=== PATIENT | male | born 1975 | race Caucasian/White ===

== ENCOUNTER 2018-01-07 08:54 | Emergency (ER) ==
[2018-01-07 09:00] VITALS: BP 128/82; TEMP 97.1; BMI 24.0
[2018-01-07] MEDS ORDERED: LIDOCAINE HCL 1% SDV SUBCUT STA (10:39)
[2018-01-07] MEDS ORDERED: BOOSTRIX IM ONE (11:07)
--- NOTE | 2018-01-07 11:08 | ED.PDOC ---
General ED Provider: Dr. FLORY SCOTT Chief Complaint: Finger Laceration Stated Complaint: Thumb laceration. Occurred this morning when slicing tile Time Seen by Physician: 09:40 Mode of Arrival: Walk-In Information Source: Patient Primary Care Provider: FLORY SAEZ Nursing and Triage Documentation Reviewed and Agree: Yes Reviewed sepsis parameters & appropriate labs ordered?: Yes System Inflammatory Response Syndrome: Not Applicable Sepsis Protocol: For patient's 13 years and over: Temp is 96.8 and below OR 101 and greater Pulse >90 BPM Resp >20/minute Acutely Altered Mental Status Are patient's symptoms suggestive of a new infection, such as: -Pneumonia -Skin, Soft Tissue -Endocarditis -UTI -Bone, Joint Infection -Implantable Device -Acute Abdominal Infection -Wound Infection -Meningitis -Blood Stream Catheter Infection -Unknown System Inflammatory Response Syndrome: Not Applicable Trauma/Injury Complaint Exam - Trauma Complaint/Exam Location of Pain or Injury: Reports: LUE (Lt Thumb) Mechanism of Injury: Reports: Incised Onset/Duration: This AM Symptoms Are: Still present Timing of Treatment: Immediate Initial Severity: Severe Current Severity: Moderate Character: Reports: Burning, Sharp Aggravating: Reports: Movement Alleviating: Reports: Elevation Associated Signs and Symptoms: Denies: LOC, Confusion, Memory loss, Lethargy, Vomiting, Bruising, Swelling, Extremity disuse, Painful respiration, Hoarseness , Dysphagia, Hemoptysis, Significant blood loss Related History: Denies: Similar episode Penetrating Injury Risk Factors: Reports: None Related Surgical History: Reports: None Immobilization Removed Post Exam: No Skin Findings: Present: Tenderness (Lt Thumb) Review of Systems - Review Of Systems Constitutional: Reports: No symptoms Eyes: Reports: No symptoms Ears, Nose, Mouth, Throat: Reports: No symptoms Respiratory: Reports: No symptoms Cardiac: Reports: No symptoms GI: Reports: No symptoms : Reports: No symptoms Musculoskeletal: Reports: No symptoms, Other (lt thumb laceration ) Skin: Reports: No symptoms Neurological: Reports: No symptoms Endocrine: Reports: No symptoms Hematologic/Lymphatic: Reports: No symptoms All Other Systems: Reviewed and Negative Past Medical History - Past Medical History Previously Healthy: Yes Endocrine: Reports: None Cardiovascular: Reports: None Respiratory: Reports: None Hematological: Reports: None Gastrointestinal: Reports: None Genitourinary: Reports: None Neuro/Psych: Reports: None Musculoskeletal: Reports: None Cancer: Reports: None - Surgical History General Surgical History: Reports: None - Family History Family History: Reports: None - Social History Smoking Status: Never smoker Hx Substance Use: No Alcohol Screening: None - Immunizations Tetanus Shot up to Date: No Physical Exam - Physical Exam Appearance: Well-appearing, No pain distress, Well-nourished Eyes: AGUILA, EOMI, Conjunctiva clear ENT: Ears normal, Nose normal, Oropharynx normal Respiratory: Airway patent, Breath sounds clear, Breath sounds equal, Respirations nonlabored Cardiovascular: RRR, Pulses normal, No rub, No murmur GI/: Soft, Nontender, No masses, Bowel sounds normal, No Organomegaly Musculoskeletal: Normal strength, ROM intact, No edema, No calf tenderness Skin: Warm (horizonal lacertation lt 1st phalynx - mid aspect extending from med -lateral up to proxm nailbed ), Dry, Normal color Neurological: Sensation intact, Motor intact, Reflexes intact, Cranial nerves intact, Alert, Oriented Psychiatric: Affect appropriate, Mood appropriate Procedures - Laceration/Wound Repair Lt Thumb Wound Description: Other (horizonal) Wound Length (cm): 2.0 cm Wound Width: 2 mm Wound Depth: 2 mm Wound Explored: Clean Wound Irrigated: Yes Wound Prep: Hibiclens, Betadine Anesthesia: Lidocaine (3cc digital block) Wound Debrided: Minimal Wound Margins: Other (approximated) Wound Repaired With: Sutures Suture Size and Type: Nylon, 4-0 Number of Sutures: 4 Layer Closure?: No Sterile Dressing Applied?: Yes Splint Applied?: Yes Type of Splint Applied: digital stabilizer Sling Applied?: No Progress: Good Critical Care Note - Critical Care Note Total Time (mins): 0 Course - Course Vital Signs: Temp Pulse Resp BP Pulse Ox 01/07/18 08:55 97.1 F L 80 16 128/82 99 Departure - Departure Time of Disposition: 11:05 Disposition: HOME SELF-CARE Discharge Problem: Laceration of left thumb Instructions: Finger Laceration (ED) Condition: Good Pt referred to PMD for follow-up: Yes (6-7 days) IPMP verified?: No Allergies/Adverse Reactions: Allergies red dye Adverse Reaction (Verified 01/07/18 09:00) Home Medications: Ambulatory Orders Cephalexin [Keflex] 500 mg PO BID #14 capsule 01/07/18 Disposition Discussed With: Patient
== END 2018-01-07 11:10 | disposition home or self-care (01) ==
LOC: ED 08:54
DX: S61.012A Laceration without foreign body of left thumb without damage to nail, initial encounter (principal); W26.0XXA Contact with knife, initial encounter
CPT/HCPCS: 90471; 90715; 99283